=== PATIENT | male | born 1965 | race Caucasian/White ===

== ENCOUNTER 2016-10-09 12:32 | Emergency (ER) | payer MEDICAID, MEDICARE ==
[~2016-10-09] VITALS: Ht 170.2 cm; Wt 84.2 kg
[2016-10-09 12:32] VITALS: BP 141/95
[~2016-10-09 12:32] MED LIST: PERC5TAB8 OR; VICO5TAB OR
[2016-10-09] MEDS ORDERED: SUBO12MI SL (12:50)
[2016-10-09] MEDS ORDERED: CATA0.2D TD (13:36)
[2016-10-09] MEDS ORDERED: ZOFR4TAB3 PO (13:36)
[2016-10-09] MEDS ORDERED: BACL1TAB9 PO (13:36)
[2016-10-09] MEDS ORDERED: diphenhydrAMINE 25 MG CAP PO ONE (13:45)
[2016-10-09] MEDS ORDERED: ONDANSETRON 4 MG ORAL DISINTEGRATING TAB (S0181) PO ONE (13:45)
[2016-10-09] MEDS ORDERED: cloNIDine HCL 0.2 MG/24 HR PATCH TOP ONE (13:45)
== END 2016-10-09 13:58 | disposition home or self-care (01) ==
LOC: M ED 13:40
DX: L29.9 Pruritus, unspecified (principal); T78.49XA Other allergy, initial encounter; F11.23 Opioid dependence with withdrawal; F31.9 Bipolar disorder, unspecified; R56.9 Unspecified convulsions; Z85.89 Personal history of malignant neoplasm of other organs and systems; Z87.820 Personal history of traumatic brain injury; Z88.5 Allergy status to narcotic agent; F17.210 Nicotine dependence, cigarettes, uncomplicated

== ENCOUNTER 2017-01-03 11:03 | Emergency (ER) | payer MEDICARE, MEDICAID ==
[~2017-01-03] VITALS: Ht 170.2 cm; Wt 106.4 kg
[~2017-01-03 11:03] MED LIST changes: +BACL1TAB9 PO; +CATA0.2D TD; +SUBO12MI SL; +ZOFR4TAB3 PO
[2017-01-03] MEDS ORDERED: ASPI81TA85 PO (11:12)
[2017-01-03] MEDS ORDERED: PERCOCET 5MG/325MG TAB PO ONE ×2 (11:15→15:15)
[2017-01-03] MEDS ORDERED: ADACEL/BOOSTRIX VACCINE (DIPHTH/PERTUSS/ACELL/TETANUS)0.5ML SYR (90715) IM ONE (11:15)
--- NOTE | 2017-01-03 12:18 | REP ---
Clinical: Trauma. Technique: AP, lateral, bilateral oblique views left wrist . Findings: The carpal bones, surrounding osseous structures, soft tissues, and joint spaces are normal. There is no evidence for acute fracture or dislocation. No subcutaneous emphysema or radiodense foreign body. Impression: No acute fracture or dislocation Signed by Ryan Butler MD 01/03/2017 12:09 P
--- NOTE | 2017-01-03 12:20 | REP ---
Clinical: Trauma. Technique: AP and lateral views of the right foot. Findings: Irregular lucencies and contours noted involving the hind foot suggesting acute and/or chronic calcaneal fractures. Correlation is required. Remainder examination appears normal. Impression: Acute and/or chronic calcaneal fractures are suggested. Signed by Ryan Butler MD 01/03/2017 12:11 P
--- NOTE | 2017-01-03 12:22 | REP ---
Clinical: Trauma. Technique: AP, lateral, bilateral oblique views of the right ankle. Findings: Cortical irregularity and lucencies involving the hind foot suggest acute versus chronic fractures of the calcaneus. AP and oblique views suggest moderate soft tissue swelling. Malleoli appear intact. Ankle mortise appears stable. Impression: Cannot exclude acute versus chronic fractures involving the calcaneus. Signed by Ryan Butler MD 01/03/2017 12:13 P
--- NOTE | 2017-01-03 14:10 | REP ---
Clinical: Trauma. Technique: Axial noncontrast images of the right foot with coronal and sagittal re-formations. Findings: There is a severe comminuted fracture of the calcaneus with surrounding traumatic inflammatory stranding. A very small associated nondisplaced corner fracture along the posterolateral margin of the talus is best identified on axial image 30 is identified. The visualized distal fibular and tibial as well as the talus and the ankle mortise appear otherwise intact. The navicular bone, cuboid bone and cuneiform bones as well as the digits appear intact. Impression: 1. Severely comminuted fracture of the calcaneus with surrounding traumatic inflammatory stranding. 2. A very small nondisplaced corner fracture along the posterolateral margin of the talus approaching the talofibular joint noted. Signed by Ryan Butler MD 01/03/2017 02:02 P
--- NOTE | 2017-01-03 14:30 | REP ---
Clinical: Preoperative assessment . Comparison: 04/07/2012 . Findings: The mediastinum and cardiac silhouette are stable and within normal limits for portable technique. Airway is patent and midline. The lung nathan are clear without acute consolidation, effusion, or pneumothorax. Skeletal structures are intact. Impression: No acute cardiopulmonary process appreciated. Signed by Ryan Butler MD 01/03/2017 02:28 P
[2017-01-03 14:36] LABS: MEAN CORPUSCULAR HEMOGLOBIN 31.1 pg (27.0-33.0); MEAN CORPUSCULAR HGB CONC 34.1 g/dl (32.0-36.5); MEAN CORPUSCULAR VOLUME 91.3 fl (80.0-96.0); RED CELL DISTRIBUTION WIDTH 12.1 % (11.5-14.5); WHITE BLOOD COUNT 18.1 K/mm3 (4.0-10.0)
[2017-01-03 14:41] LABS: INR 1.02
[2017-01-03] MEDS ORDERED: KETOROLAC 30 MG/ML VIAL (J1885) IV ONE (14:45)
[2017-01-03] MEDS ORDERED: PERC5TAB12 PO (14:51)
[2017-01-03 14:58] LABS: ANION GAP 9 MEQ/L (8-16); BLOOD UREA NITROGEN 16 MG/DL (7-18); CALCIUM LEVEL 9.5 MG/DL (8.5-10.1); CARBON DIOXIDE LEVEL 27 MEQ/L (21-32); CHLORIDE LEVEL 104 MEQ/L (98-107); CREATININE FOR GFR 1.19 MG/DL (0.70-1.30); GLOMERULAR FILTRATION RATE > 60.0 (>56); GLUCOSE, FASTING 104 MG/DL (70-105); POTASSIUM SERUM 4.3 MEQ/L (3.5-5.1); SODIUM LEVEL 140 MEQ/L (136-145)
[2017-01-03 15:38] VITALS: BP 140/98
[2017-01-03] MEDS ORDERED: OMEP40CA2 PO (19:43)
--- NOTE | 2017-01-04 07:51 | ECGEPIP ---
Stationary ECG Study 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
== END 2017-01-03 15:53 | disposition home or self-care (01) ==
LOC: M ED 11:03
DX: S92.001A Unspecified fracture of right calcaneus, initial encounter for closed fracture (principal)

== ENCOUNTER 2017-01-03 19:29 | Emergency (ER) | payer MEDICARE, MEDICAID ==
[~2017-01-03] VITALS: Ht 170.2 cm; Wt 108.1 kg
[~2017-01-03 19:29] MED LIST changes: +ASPI81TA85 PO; +PERC5TAB12 PO
[2017-01-03 19:30] VITALS: BP 168/111
[2017-01-03] MEDS ORDERED: OMEP40CA2 PO (19:43)
[2017-01-03] MEDS ORDERED: MORPHINE 10 MG/ML 1ML VIAL IM ONE (22:15)
[2017-01-03] MEDS ORDERED: ONDANSETRON 4 MG ORAL DISINTEGRATING TAB (S0181) PO ONE (22:15)
== END 2017-01-04 00:01 | disposition home or self-care (01) ==
LOC: M ED 19:29
DX: S92.001D Unspecified fracture of right calcaneus, subsequent encounter for fracture with routine healing (principal); Z72.0 Tobacco use; R56.9 Unspecified convulsions; C45.9 Mesothelioma, unspecified; Z87.820 Personal history of traumatic brain injury; X58.XXXD Exposure to other specified factors, subsequent encounter; Y92.099 Unspecified place in other non-institutional residence as the place of occurrence of the external cause; Y93.89 Activity, other specified; Y99.0 Civilian activity done for income or pay
CPT/HCPCS: 71010; 73110; 73610; 73630; 73700; 80048; 85027; 85610; 90715; 93005; 96372; 99284; J1885

== ENCOUNTER → 2018-10-06 | Outpatient (CLI) | payer MEDICARE, MEDICAID ==
[~2018-10-06] MED LIST changes: +OMEP40CA2 PO; +ZOFR4TAB14 PO; -ZOFR4TAB3 PO
== END ==
LOC: M OUTALCOH 08:14
PROVIDERS: ATTEND Psychiatry & Neurology Psychiatry
DX: F12.20 Cannabis dependence, uncomplicated (principal); F17.200 Nicotine dependence, unspecified, uncomplicated

== ENCOUNTER 2018-10-13 14:01 | Outpatient (RCR) | payer MEDICARE, MEDICAID | END 2018-10-19 | LOC: M OUTALCOH 14:01 | PROVIDERS: ATTEND Psychiatry & Neurology Psychiatry | DX: F12.20 Cannabis dependence, uncomplicated (principal); F11.20 Opioid dependence, uncomplicated; F17.200 Nicotine dependence, unspecified, uncomplicated ==

== ENCOUNTER 2018-11-11 12:55 | Outpatient (RCR) | payer MEDICARE, MEDICAID | END 2018-11-19 | LOC: M OUTALCOH 12:55 | PROVIDERS: ATTEND Psychiatry & Neurology Psychiatry | DX: F12.20 Cannabis dependence, uncomplicated (principal); F11.20 Opioid dependence, uncomplicated; F17.200 Nicotine dependence, unspecified, uncomplicated ==

== ENCOUNTER → 2018-12-09 | Outpatient (CLI) | payer MEDICARE, MEDICAID ==
--- NOTE | 2018-12-09 10:27 | REPVR ---
EXAM: MR Lumbar Spine Without Contrast. EXAM DATE/TIME: 12/09/2018 9:42 AM CLINICAL HISTORY: 53 years old, male; Low back pain and lumbago with sciatica; Right; Prior surgery; Surgery date: 6+ months; Surgery type: PT had scope and laser surgery in the 90s that was aborted and not completed; Patient HX: PT states HX of ddd, hnp to all levels, severe back pain that radiates down ble worse on RT side. PT states fall from scaffold in 80s; Additional info: M54.40 lumbago w/ sciatica TECHNIQUE: Imaging protocol: Multiplanar magnetic resonance images of the lumbar spine without intravenous contrast. COMPARISON: No relevant prior studies available. FINDINGS: Vertebral body heights are intact. There is approximately 3 mm retrolisthesis at L2-3. Alignment is otherwise maintained. No pars defect is identified. The conus is unremarkable in appearance, with its tip at the T12-L1 level. There are varying degrees of disc desiccation indicating intervertebral disc degeneration. A few small Schmorl's nodes are present. The visualized abdominal structures appear unremarkable. L1-2: Small bulge leading to very mild bilateral neural foraminal narrowing without significant spinal stenosis. L2-3: Disc osteophyte complex combining with facet arthrosis to lead to mild right and mild to moderate left neural foraminal narrowing with mild left lateral recess narrowing, without significant central canal stenosis. There is small fluid in the facet joints. L3-4: Small bulge combining with facet arthrosis to lead to very mild right and mild left neural foraminal narrowing without significant spinal stenosis. There is small fluid in the facet joints. L4-5: Diffuse bulge combining with facet arthrosis to lead to very mild right and mild left neural foraminal narrowing with very mild bilateral lateral recess narrowing, without significant central canal stenosis. There is small fluid in the left facet joint. L5-S1: Disc osteophyte complex combining with facet arthrosis to lead to mild bilateral neural foraminal narrowing without significant spinal stenosis. If surgery is considered, recommend level confirmation. IMPRESSION: Multilevel disc desiccation indicating intervertebral disk degeneration with disc displacements as described. Electronically signed by: Saw Ahumada On 12/09/2018 10:27:32 AM
== END ==
LOC: M RAD 09:01
PROVIDERS: ATTEND Family Medicine
DX: M54.40 Lumbago with sciatica, unspecified side (principal)

== ENCOUNTER 2018-12-15 12:51 | Outpatient (RCR) | payer MEDICARE, MEDICAID | END 2018-12-20 | LOC: M OUTALCOH 12:51 | PROVIDERS: ATTEND Psychiatry & Neurology Psychiatry | DX: F12.20 Cannabis dependence, uncomplicated (principal); F11.20 Opioid dependence, uncomplicated; F17.200 Nicotine dependence, unspecified, uncomplicated ==

== ENCOUNTER → 2019-01-06 | Outpatient (REF) | payer MEDICARE, MEDICAID | LOC: M SFHCPLAZ 15:59 | PROVIDERS: ATTEND Family Medicine | DX: K92.1 Melena (principal); R35.8 Other polyuria; Z13.220 Encounter for screening for lipoid disorders; Z53.8 Procedure and treatment not carried out for other reasons ==

== ENCOUNTER 2019-01-07 13:50 | Outpatient (RCR) | payer MEDICARE, MEDICAID | END 2019-01-19 | LOC: M OUTALCOH 13:50 | PROVIDERS: ATTEND Psychiatry & Neurology Psychiatry | DX: F12.10 Cannabis abuse, uncomplicated (principal); F10.20 Alcohol dependence, uncomplicated; F17.200 Nicotine dependence, unspecified, uncomplicated ==

== ENCOUNTER → 2019-01-07 | Outpatient (REF) | payer MEDICARE, MEDICAID ==
[2019-01-07 16:05] LABS: HEMATOCRIT 49.7 % (42.0-52.0); HEMOGLOBIN 16.8 g/dl (13.5-17.5); MEAN CORPUSCULAR HEMOGLOBIN 31.3 pg (27.0-33.0); MEAN CORPUSCULAR HGB CONC 33.8 g/dl (32.0-36.5); MEAN CORPUSCULAR VOLUME 92.6 fl (80.0-96.0); PLATELET COUNT, AUTOMATED 398 10^3/uL (150-450); RED BLOOD COUNT 5.37 10^6/uL (4.30-6.10); WHITE BLOOD COUNT 10.4 10^3/uL (4.0-10.0)
[2019-01-07 16:26] LABS: ALBUMIN 3.9 GM/DL (3.2-5.2); ALT/SGPT 19 U/L (12-78); BILIRUBIN,TOTAL 0.4 MG/DL (0.2-1.0); BLOOD UREA NITROGEN 12 MG/DL (7-18); CALCIUM LEVEL 9.3 MG/DL (8.5-10.1); CARBON DIOXIDE LEVEL 30 MEQ/L (21-32); CHLORIDE LEVEL 103 MEQ/L (98-107); CHOLESTEROL LEVEL 252 MG/DL (<200); CREATININE FOR GFR 1.05 MG/DL (0.70-1.30); GLOMERULAR FILTRATION RATE > 60.0 (>56); GLUCOSE, FASTING 65 MG/DL (70-100); HDL CHOLESTEROL 45 MG/DL (>40); LDL CHOLESTEROL 170 MG/DL (<100); NON-HDL-C 207 MG/DL; POTASSIUM SERUM 4.8 MEQ/L (3.5-5.1); SODIUM LEVEL 137 MEQ/L (136-145); TOTAL PROTEIN 7.3 GM/DL (6.4-8.2); TRIGLYCERIDES LEVEL 185 MG/DL (<150)
== END ==
LOC: M SFHCPLAZ 14:57
PROVIDERS: ATTEND Family Medicine
DX: K92.1 Melena (principal); R35.8 Other polyuria; Z13.220 Encounter for screening for lipoid disorders

== ENCOUNTER 2019-02-06 10:45 | Outpatient (RCR) | payer MEDICARE, MEDICAID ==
[~2019-02-06 10:45] MED LIST changes: -OMEP40CA2 PO; +OMEP40CA97 PO
== END 2019-02-19 ==
LOC: M OUTALCOH 10:45
PROVIDERS: ATTEND Psychiatry & Neurology Psychiatry
DX: F12.20 Cannabis dependence, uncomplicated (principal); F11.20 Opioid dependence, uncomplicated; F17.200 Nicotine dependence, unspecified, uncomplicated

== ENCOUNTER 2019-03-13 10:55 | Outpatient (RCR) | payer MEDICARE, MEDICAID | END 2019-03-21 | LOC: M OUTALCOH 10:55 | PROVIDERS: ATTEND Psychiatry & Neurology Psychiatry | DX: F12.20 Cannabis dependence, uncomplicated (principal); F11.20 Opioid dependence, uncomplicated; F17.200 Nicotine dependence, unspecified, uncomplicated | CPT/HCPCS: 90834; H0001 ==

== ENCOUNTER 2019-12-02 13:15 | Emergency (ER) | payer OTHER, MEDICARE, MEDICAID ==
[~2019-12-02 13:15] MED LIST changes: -ASPI81TA85 PO; +ASPI81TA86 PO
[2019-12-02] MEDS ORDERED: ACETAMINOPHEN 325 MG TAB ONE (13:16)
[2019-12-02] MEDS ORDERED: ACETAMINOPHEN 325 MG TAB As Ordered ONE (13:23)
[2019-12-09] MEDS ORDERED: SUBO12MI SL (15:52)
== END 2019-12-02 15:10 | disposition home or self-care (01) ==
LOC: M ED 13:15
DX: S82.832A Other fracture of upper and lower end of left fibula, initial encounter for closed fracture (principal); V13.9XXA Unspecified pedal cyclist injured in collision with car, pick-up truck or van in traffic accident, initial encounter; Y92.9 Unspecified place or not applicable; Y93.9 Activity, unspecified; Y99.9 Unspecified external cause status; F11.20 Opioid dependence, uncomplicated; F17.200 Nicotine dependence, unspecified, uncomplicated

== ENCOUNTER → 2019-12-05 | Outpatient (CLI) | payer MEDICARE, MEDICAID | LOC: M LABSMTC 12-04 10:35 | PROVIDERS: ATTEND Orthopaedic Surgery | DX: Z11.59 Encounter for screening for other viral diseases (principal) | CPT/HCPCS: C9803; U0003 ==

== ENCOUNTER 2019-12-10 08:26 | Day surgery (SDC) | payer OTHER, MEDICARE, MEDICAID ==
[~2019-12-10] VITALS: Ht 170.2 cm; Wt 68.5 kg
[~2019-12-10 08:26] MED LIST changes: +LIDOCAINE 2% 100MG/5ML SDV (FOR ANES.) As Ordered ONE; +MIDAZOLAM INJ 2MG/2ML VIAL (J2250 PER 1MG) As Ordered ONE; +fentaNYL 100 MCG/2 ML INJECTION (J3010) As Ordered ONE; +propofoL 500 MG/50 ML VIAL As Ordered ONE
[2019-12-10] MEDS ORDERED: EPINEPHrine INJ 1 MG/ML 1ML AMP ONE (08:27)
[2019-12-10] MEDS ORDERED: ROPIvacaine 0.5% 30ML INJECTION (J2795 PER 1MG) ONE (08:27)
[2019-12-10] MEDS ORDERED: dexameTHASONE 10MG/1ML VIAL PRES.FREE (J1100 PER 1MG) ONE (08:27)
[2019-12-10] MEDS ORDERED: ceFAZolin 2 GM/D5W 50 ML IV BAG (J0690 PER 500MG) As Ordered ONE (09:04)
[2019-12-10] MEDS ORDERED: KETOROLAC 60MG 2ML VIAL As Ordered ONE (09:27)
[2019-12-10] MEDS ORDERED: ONDANSETRON 4MG/2ML VIAL As Ordered ONE (09:27)
[2019-12-10] MEDS ORDERED: dexameTHASONE 4 MG/ML 1ML VIAL (J1100 PER 1MG) As Ordered ONE (09:27)
[2019-12-10] MEDS ORDERED: METOCLOPRAMIDE INJ 10MG/2ML VIAL (J2765 PER 1) As Ordered ONE (09:27)
[2019-12-10] MEDS ORDERED: BUPIVACAINE HCL 0.5% 30 ML VIAL As Ordered ONE (09:43)
[2019-12-10] MEDS ORDERED: HYDROmorphone HCL 2 MG/ML 1ML VIAL (J1170) As Ordered ONE (09:48)
[2019-12-10] MEDS ORDERED: ceFAZolin 2 GM/D5W 50 ML IV BAG (J0690 PER 500MG) IV ONE (10:01)
[2019-12-10] MEDS ORDERED: LR 1,000 ML IV SCH ×2 (11:00→12:01)
[2019-12-10] MEDS ORDERED: ONDANSETRON 4MG/2ML VIAL IV PRN (11:00)
[2019-12-10] MEDS ORDERED: METOCLOPRAMIDE INJ 10MG/2ML VIAL (J2765 PER 1) IV PRN (11:00)
[2019-12-10] MEDS: fentaNYL 100 MCG/2 ML INJECTION (J3010) IV PRN ×8 (11:25→12:19)
[2019-12-10] MEDS: MEPERIDINE INJ 25 MG/ML VIAL (J2175) IV PRN ×2 (11:37→11:42)
[2019-12-10] MEDS: oxyCODONE 5MG TAB PO PRN ×2 (11:39→12:14)
[2019-12-10] MEDS ORDERED: MIDAZOLAM INJ 2MG/2ML VIAL (J2250 PER 1MG) As Ordered ONE (12:15)
[2019-12-10] MEDS: fentaNYL 100 MCG/2 ML INJECTION (J3010) IV SCH ×2 (12:18→12:30)
[2019-12-10] MEDS: MIDAZOLAM INJ 2MG/2ML VIAL (J2250 PER 1MG) IV SCH ×2 (12:18→12:30)
[2019-12-10 15:10] VITALS: BP 154/92
--- NOTE | 2020-01-12 09:32 | ECGEPIP ---
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
--- NOTE | 2020-01-15 09:03 | REP ---
LEFT ANKLE X-RAY: 9-VIEWS HISTORY: Left fibula fracture. Operative imaging. 37 seconds of fluoroscopy time is reported. FINDINGS: A sequence of 9 last image hold fluoroscopically obtained spot radiographs of the ankle document and open reduction internal fixation. No laterality markers are visible. MTDD
--- NOTE | 2020-01-28 10:49 | RO ---
DATE OF OPERATION: 12/10/2019 PREOPERATIVE DIAGNOSIS: Left ankle fracture. POSTOPERATIVE DIAGNOSIS: Left ankle fracture. PROCEDURE: Left ankle open reduction internal fixation. SURGEON: Fouzia Perez M.D. GEOGRAPHIC INFORMATION SYSTEMS ENGINEER: None. INDICATIONS: Wagner Meyers is a 54-year-old male who sustained a left ligamentous SER 4 ankle fracture. Risks and benefits of surgery were discussed with the patient in detail and include, but are not limited to, infection, damage to nerves and blood vessels, continued pain and stiffness, need for additional procedures. Informed consent was obtained. PROCEDURE: The patient was met in the preoperative holding area where the left lower extremity was marked at the correct operative site. Soft tissues were amenable for surgery. He was then taken to the Operating Room where the left lower extremity was prepped and draped in normal sterile fashion. A well padded tourniquet had been applied to the upper left leg. Antibiotics were given within 60 minutes prior to incision. An official timeout was held where the correct patient, operative site and operative procedure were verified. The leg was exsanguinated and tourniquet was inflated to 250 mmHg. Incision was made over the posterolateral aspect of the distal fibula. Careful dissection was performed at the level of the fibula fracture. Fracture was cleaned and debrided. Copious irrigation was performed. The fracture was reduced using a pointed reduction clamp. It was held in place with a 0.062 K-wire. AP mortise and lateral x-rays showed satisfactory reduction of the fracture and ankle mortise. A 3.5 mm lag screw was placed across the fracture site. Then, I further secured this using a seven hole one-third tubular plate. There was good fixation both proximally and distally. Cotton test as well as external rotation test showed that the mortise was stable following fixation of the fibula. Copious irrigation was performed. Soft tissues were closed using a combo of 2-0 and 3-0 Vicryl. Skin was closed using 3-0 nylon. A well padded dressing was applied, followed by a well padded splint. Patient was extubated and transferred to the Recovery Room in stable condition. ESTIMATED BLOOD LOSS: 10 cc. COMPLICATIONS: None. CONDITION: Stable to recovery. PLAN: Patient will be non-weightbearing on the right lower extremity for six weeks. He will be on Xarelto 50 for DVT prophylaxis. He will be seen in one week for wound check and cast placement. MTDD
== END 2019-12-10 15:32 | disposition home or self-care (01) ==
LOC: M SDC 08:26
PROVIDERS: ATTEND Orthopaedic Surgery
DX: S82.892A Other fracture of left lower leg, initial encounter for closed fracture (principal); X58.XXXA Exposure to other specified factors, initial encounter; Y92.89 Other specified places as the place of occurrence of the external cause; M48.00 Spinal stenosis, site unspecified; J44.9 Chronic obstructive pulmonary disease, unspecified; K21.9 Gastro-esophageal reflux disease without esophagitis; R56.9 Unspecified convulsions; Z86.73 Personal history of transient ischemic attack (TIA), and cerebral infarction without residual deficits; F15.11 Other stimulant abuse, in remission; R06.02 Shortness of breath; F17.210 Nicotine dependence, cigarettes, uncomplicated; Z79.899 Other long term (current) drug therapy; Z79.891 Long term (current) use of opiate analgesic
CPT/HCPCS: 27792; 76000; 87486; 87581; 87633; 87798; 93005; C1713; J0171; J0690; J1100; J1170; J2175; J2250; J2405; J2765; J2795; J3010

== ENCOUNTER 2023-03-02 02:10 | Emergency (ER) | payer OTHER, MEDICAID ==
[~2023-03-02 02:10] MED LIST changes: -CATA0.2D TD; +CLON1PAT4 TD; -LIDOCAINE 2% 100MG/5ML SDV (FOR ANES.) As Ordered ONE; -MIDAZOLAM INJ 2MG/2ML VIAL (J2250 PER 1MG) As Ordered ONE; +OMEP40CA4 PO; -OMEP40CA97 PO; -fentaNYL 100 MCG/2 ML INJECTION (J3010) As Ordered ONE; -propofoL 500 MG/50 ML VIAL As Ordered ONE
== END 2023-03-02 05:14 | disposition home or self-care (01) ==
LOC: M ED 02:10
DX: S90.32XA Contusion of left foot, initial encounter (principal); Y04.0XXA Assault by unarmed brawl or fight, initial encounter; Y92.410 Unspecified street and highway as the place of occurrence of the external cause; Y99.9 Unspecified external cause status; Z79.891 Long term (current) use of opiate analgesic; Z88.5 Allergy status to narcotic agent

== ENCOUNTER 2025-02-02 19:25 | Emergency (ER) | payer MEDICAID, OTHER ==
[~2025-02-02] VITALS: Ht 167.6 cm; Wt 72.0 kg
[2025-02-02 19:30] VITALS: BP 131/87; TEMP 99.6; O2SAT 97
[2025-02-02 20:43] LABS: BASO # 0.0 10^3/uL (0.0-0.2); BASO % 0.3 % (0.0-1.0); EOS # 0.1 10^3/uL (0.0-0.5); EOS % 1.2 % (0.0-3.0); LYMPH # 1.7 10^3/uL (1.5-5.0); LYMPH % 13.7 % (24.0-44.0); MONO # 0.6 10^3/uL (0.0-0.8); MONO % 5.1 % (2.0-8.0); NEUTROPHILS # 9.6 10^3/uL (1.5-8.5); NEUTROPHILS % 79.5 % (36.0-66.0); PLATELET COUNT, AUTOMATED 459 10^3/uL (150-450)
[2025-02-02 20:52] LABS: INR 1.15
[2025-02-02 21:09] LABS: CK-MB VALUE MASS 2.3 NG/ML (<3.6)
[2025-02-02 21:10] LABS: CK-MB VALUE MASS 2.2 NG/ML (<3.6)
[2025-02-02 21:11] LABS: CALCIUM LEVEL 8.6 MG/DL (8.5-10.1); CARBON DIOXIDE LEVEL 28.0 MMOL/L (20-31); CHLORIDE LEVEL 107.0 MMOL/L (98-107); CPK CREATINE PHOSPHOKINASE 68.0 U/L (46-171); CREATININE FOR GFR 1.12 MG/DL (0.70-1.30); GLOMERULAR FILTRATION RATE 75.7 (>56); MB/CK RELATIVE INDEX 3.23 (< OR =4); POTASSIUM SERUM 4.0 MMOL/L (3.5-5.1); SODIUM LEVEL 145.0 MMOL/L (136-145)
[2025-02-02 21:22] LABS: CPK CREATINE PHOSPHOKINASE 80.0 U/L (46-171); MB/CK RELATIVE INDEX 2.87 (< OR =4)
== END 2025-02-03 01:00 | disposition left against medical advice (07) ==
LOC: M ED 19:25
DX: Z53.21 Procedure and treatment not carried out due to patient leaving prior to being seen by health care provider (principal)

== ENCOUNTER 2025-02-03 06:33 | Emergency (ER) | payer MEDICAID, MEDICARE ==
[~2025-02-03] VITALS: Ht 170.2 cm; Wt 75.0 kg
[2025-02-03] MEDS: NS (Normal Saline) 0.9% 1,000 ML IV ONE (08:36)
[2025-02-03 08:50] LABS: BASO # 0.0 10^3/uL (0.0-0.2); BASO % 0.3 % (0.0-1.0); EOS # 0.2 10^3/uL (0.0-0.5); EOS % 2.1 % (0.0-3.0); LYMPH # 1.2 10^3/uL (1.5-5.0); LYMPH % 12.4 % (24.0-44.0); MONO # 0.5 10^3/uL (0.0-0.8); MONO % 4.7 % (2.0-8.0); NEUTROPHILS # 7.9 10^3/uL (1.5-8.5); NEUTROPHILS % 80.2 % (36.0-66.0); PLATELET COUNT, AUTOMATED 452 10^3/uL (150-450)
[2025-02-03 09:13] LABS: CK-MB VALUE MASS < 1.0 NG/ML (<3.6); CPK CREATINE PHOSPHOKINASE 33 U/L (46-171)
[2025-02-03 09:14] LABS: ALT/SGPT 11 U/L (7.0-40); AST/SGOT 12 U/L (<34); CALCIUM LEVEL 8.2 MG/DL (8.5-10.1); CARBON DIOXIDE LEVEL 27 MMOL/L (20-31); CHLORIDE LEVEL 106 MMOL/L (98-107); CREATININE FOR GFR 0.87 MG/DL (0.70-1.30); GLOMERULAR FILTRATION RATE > 90.0 (>56); POTASSIUM SERUM 3.7 MMOL/L (3.5-5.1); SODIUM LEVEL 142 MMOL/L (136-145)
[2025-02-03] MEDS: PANTOPRAZOLE 40MG TAB PO ONE (10:05)
[2025-02-03 12:15] VITALS: BP 127/68
[2025-02-03 12:19] VITALS: TEMP 98.8; O2SAT 96
== END 2025-02-03 12:21 | disposition home or self-care (01) ==
LOC: M ED 06:33
DX: F19.10 Other psychoactive substance abuse, uncomplicated (principal); F17.200 Nicotine dependence, unspecified, uncomplicated; Z87.820 Personal history of traumatic brain injury; Z88.5 Allergy status to narcotic agent; R94.31 Abnormal electrocardiogram [ECG] [EKG]

== ENCOUNTER 2025-02-12 07:44 | Emergency (ER) | payer MEDICARE ==
[~2025-02-12] VITALS: Ht 167.6 cm; Wt 72.0 kg
[2025-02-12 08:37] LABS: KETONE, URINE AUTO RFX NEGATIVE (NEGATIVE); LEUKOCYTE ESTERASE UR AUTO RFX NEGATIVE (NEGATIVE); NITRITE, URINE AUTO RFX NEGATIVE (NEGATIVE); RBC, URINE AUTO RFX 1 /HPF (0-3); SQUAM EPITHELIAL CELL UR AURFX 0 /HPF (0-6); WBC, URINE AUTO RFX 1 /HPF (0-3)
[2025-02-12 09:28] LABS: BASO # 0.1 10^3/uL (0.0-0.2); BASO % 0.5 % (0.0-1.0); EOS # 0.0 10^3/uL (0.0-0.5); EOS % 0.2 % (0.0-3.0); LYMPH # 2.1 10^3/uL (1.5-5.0); LYMPH % 12.4 % (24.0-44.0); MONO # 1.2 10^3/uL (0.0-0.8); MONO % 7.3 % (2.0-8.0); NEUTROPHILS # 13.1 10^3/uL (1.5-8.5); NEUTROPHILS % 79.2 % (36.0-66.0); PLATELET COUNT, AUTOMATED 494 10^3/uL (150-450)
[2025-02-12 09:49] VITALS: BP 165/95; TEMP 98.1; O2SAT 96
[2025-02-12 09:56] LABS: ETHYL ALCOHOL (ETHANOL) 0.006 % (0.000-0.010)
[2025-02-12 09:58] LABS: SALICYLATE LEVEL < 3.0 MG/DL (<30)
[2025-02-12 09:59] LABS: ALT/SGPT 13 U/L (7.0-40); AST/SGOT 22 U/L (<34); CALCIUM LEVEL 8.8 MG/DL (8.5-10.1); CARBON DIOXIDE LEVEL 26 MMOL/L (20-31); CHLORIDE LEVEL 105 MMOL/L (98-107); CREATININE FOR GFR 1.00 MG/DL (0.70-1.30); GLOMERULAR FILTRATION RATE 86.7 (>56); POTASSIUM SERUM 4.5 MMOL/L (3.5-5.1); SODIUM LEVEL 141 MMOL/L (136-145)
[2025-02-12 10:33] LABS: BARBITURATES URINE NEGATIVE (NEGATIVE); BENZODIAZEPINES URINE NEGATIVE (NEGATIVE); OSMOLALITY SERUM 299 MOSM/KG (275-295); PHENCYCLIDINE URINE NEGATIVE (NEGATIVE)
[2025-02-12 10:34] LABS: AMPHETAMINES LEVEL URINE POSITIVE (NEGATIVE); CANNABINOIDS URINE POSITIVE (NEGATIVE); COCAINE METABOLITE URINE NEGATIVE (NEGATIVE); METHADONE URINE NEGATIVE (NEGATIVE); OPIATES URINE NEGATIVE (NEGATIVE)
== END 2025-02-12 12:31 | disposition left against medical advice (07) ==
LOC: M ED 07:44
DX: Z53.21 Procedure and treatment not carried out due to patient leaving prior to being seen by health care provider (principal)